=== PATIENT | male | born 1975 | race Caucasian/White ===

== ENCOUNTER 2018-08-17 20:56 | Inpatient (IN) | payer OTHER ==
--- NOTE | 2018-08-18 01:27 | HP ---
COWS - Scale Resting Pulse: 1= [place] 81-100 Sweatin=Flushed/Facial Moisture Restless Observation: 0= Sits Still Pupil Size: 5= Only [place] of [place] Seen (Pupils = 8 mm) Bone or Joint Aches: 0= None Runny Nose/ Eye Tearin= Nasal Congestion GI Upset > 30mins: 0= None Tremor Observation: 2= Slight Tremor Visible Yawning Observation: 1= 1-2x During Session Anxiety or Irritability: 1=Feels Anxious/Irritable Goose Flesh Skin: 0=Smooth Skin COWS Score: 13 CIWA Score - Admission Criteria OASAS Guidelines: Admission for Medically Managed Detox: Requires at least one of the followin. CIWA greater than 12 2. Seizures within the past 24 hours 3. Delirium tremens within the past 24 hours 4. Hallucinations within the past 24 hours 5. Acute intervention needed for co occurring medical disorder 6. Acute intervention needed for co occurring psychiatric disorder 7. Severe withdrawal that cannot be handled at a lower level of care (continued vomiting, continued diarrhea, abnormal vital signs) requiring intravenous medication and/or fluids 8. Admission ROS [facility] Chief Complaint: Heroin withdrawal. Allergies/Adverse Reactions: Allergies Allergy/AdvReac Type Severity Reaction Status Date / Time No Known Allergies Allergy Verified 08/18/18 01:55 History of Present Illness: Here for heroin detox. Heroin use began at age 35. Current use is 5-6 bag daily for 7 years. - IVDU. Denies sharing needles or works. Prescribed Xanax and Klonopin x 10 years - prescribed for PTSD and anxiety. States never takes more than prescrubed. Denies alcohol use. Nicotine use began at age 14. 1/2 PPD Cocaine use began at age 18. States no known use since 2006. Denies hx seizures, blackouts or overdoses. No Narcan kit at home. Willing to accept kit for home. PMHx: Denies significant PMH. MHHx. ADHD, PTSD and Depression. On medications. Denies thoughts of harming self or others. Longest length sobriety 1 year at age 38. Patient Name: Asif Bray Date: 1975 Address: [address] [place] [address] [place] [address] Sex: Male Rx Written Rx Dispensed Drug Quantity Days Supply Prescriber Name 08/12/2018 08/13/2018 dextroamp-amphetamin 20 mg tab 90 30 [place]dale, Sue Pride MD 08/12/2018 08/12/2018 alprazolam 2 mg tablet 30 30 [place]dale, Sue Pride MD 08/09/2018 08/10/2018 clonazepam 0.5 mg tablet 90 30 Gerdis, Francesco Chavarria MD 07/13/2018 07/13/2018 clonazepam 0.5 mg tablet 90 30 Gerdis, Francesco Chavarria MD 06/28/2018 06/29/2018 alprazolam 1 mg tablet 60 30 Gerdis, Francesco Chavarria MD 06/02/2018 06/02/2018 alprazolam 1 mg tablet 60 30 Gerdis, Francesco Chavarria MD 05/04/2018 05/04/2018 alprazolam 1 mg tablet 60 30 Gerdis, Francesco Chavarria MD 04/06/2018 04/06/2018 alprazolam 1 mg tablet 60 30 Gerdis, Francesco Chavarria MD 03/09/2018 03/09/2018 alprazolam 1 mg tablet 60 30 Gerdis, Francesco Chavarria MD 02/09/2018 02/09/2018 alprazolam 0.5 mg tablet 90 30 Gerdis, Francesco Chavarria MD 01/26/2018 01/26/2018 alprazolam 1 mg tablet 30 30 Gerdis, Francesco Chavarria MD 11/24/2017 11/24/2017 alprazolam 1 mg tablet 30 30 Ormazabal, Olatz Exam Limitations: No Limitations - Ebola screening Have you traveled outside of the country in the last 21 days: No Have you had contact with anyone from an Ebola affected area: No Do you have a fever: No - Review of Systems Constitutional: Chills, Diaphoresis, Changes in sleep (Difficulty falling asleep - takes vistaril) EENT: reports: Blurred Vision, Nose Congestion Respiratory: reports: No Symptoms reported Cardiac: reports: No Symptoms Reported GI: reports: No Symptoms Reported : reports: No Symptoms Reported Musculoskeletal: reports: No Symptoms Reported Integumentary: reports: No Symptoms Reported Neuro: reports: No Symptoms reported Endocrine: reports: No Symptoms Reported Hematology: reports: No Symptoms Reported Psychiatric: reports: Judgement Intact, Orientated x3 (Denies thoughts of harming self or others), Anxious, Depressed Patient History - PPD History Previous Implant?: Yes Documented Results: Negative w/o proof Implanted On Prior [facility] Admission?: No PPD to be Administered?: Yes - Smoking Cessation Smoking history: Current every day smoker Have you smoked in the past 12 months: Yes Aproximately how many cigarettes per day: 10 Hx Chewing Tobacco Use: No Initiated information on smoking cessation: Yes 'Breaking Loose' booklet given: 08/18/18 - Substance & Tx. History Hx Alcohol Use: No Hx Substance Use: Yes Substance Use Type: Heroin, Prescribed Hx Substance Use Treatment: Yes (rehab, ) - Substances abused Heroin Substance route: Injection Frequency: Daily Date of last use: 08/17/18 Admission Physical Exam [facility] - Vital Signs Vital Signs: Vital Signs - 24 hr 08/18/18 00:17 Pulse Rate 79 Respiratory 18 Rate Blood Pressure 110/65 - Physical General Appearance: Yes: Nourished, Mild Distress, Tremorous (Mild tremors) HEENTM: Yes: EOMI (Jerking movements of eyes upon lateral gaze), Hearing grossly Normal, Normocephalic, Normal Voice, CEZAR (Pupils = 8 mm), Pharynx Normal, Nasal Congestion, Other (Thick, sticky saliva) Respiratory: Yes: Lungs Clear, Normal Breath Sounds, No Respiratory Distress Neck: Yes: No masses,lesions,Nodules, Supple Breast: Yes: Breast Exam Deferred Cardiology: Yes: Regular Rhythm, Regular Rate, S1, S2 Abdominal: Yes: Non Tender, Soft, Increased Bowel Sounds Genitourinary: Yes: Within Normal Limits Back: Yes: Normal Inspection Musculoskeletal: Yes: full range of Motion, Gait Steady Extremities: Yes: Normal Capillary Refill, Tremors (slight tremors) 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 No increased erythema or warmth.) Lymphatic: Yes: Within Normal Limits - Diagnostic (1) Opioid dependence with withdrawal Current Visit: Yes Status: Acute Comment: IVDU (2) Nicotine dependence, uncomplicated Current Visit: Yes Status: Chronic Qualifiers: Nicotine product type: cigarettes Qualified Code(s): F17.210 - Nicotine dependence, cigarettes, uncomplicated (3) At risk for dehydration Current Visit: Yes Status: Acute (4) Prolonged Q-T interval on ECG Current Visit: Yes Status: Acute (5) Nystagmus Current Visit: Yes Status: Acute Cleared for Admission [facility] - Detox or Rehab [facility] Level of Care: Medically Managed Detox Regimen/Protocol: Methadone Breathalyzer - Breathalyzer Breathalyzer: 0 Urine Drug Screen - Test Device Lot number: [id number] Expiration date: 04/16/20 - Control Is test valid?: Yes - Results Drug screen NEGATIVE: No Urine drug screen results: ANA-Cocaine, AMP-Amphetamines, FEN-Fentanyl, MOP- Opiates, BZO-Benzodiazepines Inpatient Rehab Admission - Rehab Decision to Admit Inpatient rehab admission?: No
[2018-08-18] MEDS ORDERED: MAG HYDROX/AL HYDROX/SIMETH 30 ML UNIT-DOSE CUP PO PRN (02:02)
[2018-08-18] MEDS ORDERED: IBUPROFEN 400 MG TABLET (FP) PO PRN (02:02)
[2018-08-18] MEDS ORDERED: BISMUTH SUBSALICYLATE 524 MG/30 ML UD PO PRN (02:02)
[2018-08-18] MEDS ORDERED: MENTHOL/PHENOL 1 EACH UD MM PRN (02:02)
[2018-08-18] MEDS ORDERED: PROCHLORPERAZINE MALEATE 5 MG TABLET PO PRN (02:02)
[2018-08-18] MEDS ORDERED: NALOXONE HCL 0.4 MG/ML VIAL IVPUSH PRN (02:02)
[2018-08-18] MEDS ORDERED: guaiFENesin 200 MG/10 ML 10 ML UNIT-DOSE CUPS PO PRN (02:02)
[2018-08-18] MEDS ORDERED: MAGNESIUM HYDROX 2400MG/30ML ORAL SUSPENSION 30 ML CUP PO PRN (02:02)
[2018-08-18] MEDS ORDERED: ACETAMINOPHEN 325 MG TABLET (FP) PO PRN ×2 (02:02)
[2018-08-18] MEDS ORDERED: METHOCARBAMOL 500 MG TABLET PO PRN (02:02)
[2018-08-18] MEDS ORDERED: clonazePAM 0.5 MG TABLET PO PRN (02:02)
[2018-08-18] MEDS ORDERED: MAGNESIUM CITRATE 300 ML BOTTLE PO PRN (02:02)
[2018-08-18] MEDS ORDERED: METHADONE HCL 10 MG TABLET (FOR DETOX USE ONLY) PO ONE ×2 (02:15→10:00)
--- NOTE | 2018-08-18 10:08 | EKG ---
Test Reason : Blood Pressure : / mmHG Vent. Rate : 078 BPM Atrial Rate : 078 BPM P-R Int : 178 ms QRS Dur : 100 ms QT Int : 432 ms P-R-T Axes : 061 092 077 degrees QTc Int : 492 ms NORMAL SINUS RHYTHM RIGHTWARD AXIS PROLONGED QT ABNORMAL ECG NO PREVIOUS ECGS AVAILABLE Confirmed by REBECA GOODMAN MD ([id number]) on 08/18/2018 10:08:19 AM Referred By: Confirmed By:REBECA GOODMAN MD
[2018-08-18] MEDS: PRENATAL VITAMINS W/ FOLIC ACID TABLET (FP) PO SCH (10:40)
[2018-08-18] MEDS: cloNIDine HCL 0.1 MG TABLET PO PRN ×2 (10:43→18:36)
[2018-08-18] MEDS: NICOTINE 14 MG/24 HOURS TOPICAL PATCH TD SCH (10:50)
--- NOTE | 2018-08-18 11:24 | CONSULT ---
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 Refer to addiction counselor's summary for further information Medical History: Unremarkable Psychiatric History: Reports being diagnosed with ADHD and PTSD at age 33 at a clinic in [place] and started on xanax and Adderall. Reports seeing Dr Sue Patterson, a private psychiatrist and he is prescribed Lexapro 10 mg po daily, Adderall 20 mg po TID and Xanax 2 mg po daily. Claims he only takes adderall 10 mg po TID. He is also prescribed Klonopin 0.[address] Dr Francesco Benavides, his primary care physician. Told insurance underwriter sales his psychiatrist is aware that he is getting Klonopin from his PCP. Denies previous psychiatric hospitalization or suicidal attempt. At present, reports feeling depressed and sleeping poorly Physical/Sexual Abuse/Trauma History: Denies history of emotional, physical or sexual abuse as well as DV relationship. No service Additional Comment: Reports history of a few arrests including 2 felony convictions. Reports being on probation till October 2019 Mental Status Exam - Mental Status Exam Alert and Oriented to: Time, Place, Person Cognitive Function: Fair Patient Appearance: Well Groomed Mood: Depressed Affect: Appropriate Patient Behavior: Cooperative Speech Pattern: Clear Voice Loudness: Normal Thought Process: Intact, Goal Oriented Thought Disorder: Not Present Hallucinations: Denies Suicidal Ideation: Denies Homicidal Ideation: Denies Insight/Judgement: Poor Sleep: Poorly Appetite: Fair Muscle strength/Tone: Normal Gait/Station: Normal Psychiatric Findings - Problem List ([place] 1, 2,3) (1) ADHD (attention deficit hyperactivity disorder) Current Visit: Yes Status: Chronic (2) PTSD (post-traumatic stress disorder) Current Visit: Yes Status: Chronic (3) Substance induced mood disorder Current Visit: Yes Status: Acute (4) Substance-induced sleep disorder Current Visit: Yes Status: Acute (5) Opioid dependence with withdrawal Current Visit: Yes Status: Acute Comment: IVDU (6) Nicotine dependence, uncomplicated Current Visit: Yes Status: Chronic Qualifiers: Nicotine product type: cigarettes Qualified Code(s): F17.210 - Nicotine dependence, cigarettes, uncomplicated - Initial Treatment Plan Initial Treatment Plan: 1) Continue Lexapro 10 mg po daily. 2) Start Melatonin 5 mg po HS prn for insomnia. 3) Continue inpatient detoxfication
--- NOTE | 2018-08-18 11:38 | PN ---
[facility] COWS - Scale Resting Pulse: 1= MO 81-100 Sweatin=Flushed/Facial Moisture Restless Observation: 1= Difficult to Sit Still Pupil Size: 0= Normal to Room Light Bone or Joint Aches: 2= Severe Diffuse Aches Runny Nose/ Eye Tearin= Runny Nose/Eyes GI Upset > 30mins: 0= None Tremor Observation of Outstretched Hands: 1= Tremor [place], Not Seen Yawning Observation: 1= 1-2x During Session Anxiety or Irritability: 1=Feels Anxious/Irritable Goose Flesh Skin: 0=Smooth Skin COWS Score: 11 [facility] Progress Note (SOAP) Subjective: agitation sweats shakes tired interrupted sleep Objective: 08/18/18 11:37 Vital Signs Temperature 98.3 F 08/18/18 09:15 Pulse Rate 81 08/18/18 09:15 Respiratory Rate 18 08/18/18 09:15 Blood Pressure 116/66 08/18/18 09:15 O2 Sat by Pulse Oximetry (%) labs pending aaox3 ambulating no acute distress Assessment: 08/18/18 11:38 withdrawal sx Plan: continue detox increase fluids labs pending
[2018-08-18 12:29] LABS: HEMATOCRIT 42.7 % (35.4-49); HEMOGLOBIN 14.1 GM/dL (11.7-16.9); MCH 28.9 pg (25.7-33.7); MCHC 32.9 g/dl (32.0-35.9); MEAN CELL VOLUME 87.8 fl (80-96); MEAN PLT VOLUME 7.8 fl (7.5-11.1); PLATELET COUNT 266 K/MM3 (134-434); RBC 4.86 M/mm3 (4.00-5.60); RDW 14.1 % (11.9-15.9); WHITE BLOOD COUNT 7.2 K/mm3 (4.0-10.0)
[2018-08-18 13:05] LABS: ALBUMIN 3.5 g/dl (3.4-5.0); ALK PHOS 111 U/L (45-117); ANION GAP 8 MMOL/L (8-16); BILIRUBIN,TOTAL 0.2 mg/dL (0.2-1); BLOOD UREA NITROGEN 17 mg/dL (7-18); CALCIUM 8.3 mg/dL (8.5-10.1); CHLORIDE 108 mmol/L (98-107); CO2 24 mmol/L (21-32); GLUCOSE,RANDOM 102 mg/dL (74-106); POTASSIUM 4.9 mmol/L (3.5-5.1); SGOT/AST 19 U/L (15-37); SGPT/ALT 23 U/L (13-61); SODIUM 140 mmol/L (136-145); TOT PROT 6.3 g/dl (6.4-8.2)
[2018-08-18] MEDS: ESCITALOPRAM OXALATE 10 MG TABLET (FP) PO SCH (13:18)
[2018-08-18] MEDS: MELATONIN 5 MG TABLETS PO PRN (22:30)
[2018-08-18] MEDS: THIAMINE HCL 100 MG TABLET (FP) PO SCH (22:30)
--- NOTE | 2018-08-19 09:52 | PN ---
BHS COWS - Scale Resting Pulse: 0= [place] 80 or Below Sweatin= Chills/Flushing Restless Observation: 0= Sits Still Pupil Size: 0= Normal to Room Light Bone or Joint Aches: 2= Severe Diffuse Aches Runny Nose/ Eye Tearin= Nasal Congestion GI Upset > 30mins: 0= None Tremor Observation of Outstretched Hands: 1= Tremor [place], Not Seen Yawning Observation: 2= >3x During Session Anxiety or Irritability: 1=Feels Anxious/Irritable Goose Flesh Skin: 0=Smooth Skin COWS Score: 8 [facility] Progress Note (SOAP) Subjective: little sweats feeling better some body aches Objective: 08/19/18 09:51 Vital Signs Temperature 97.5 F L 08/19/18 07:47 Pulse Rate 56 L 08/19/18 07:47 Respiratory Rate 16 08/19/18 07:47 Blood Pressure 111/64 08/19/18 07:47 O2 Sat by Pulse Oximetry (%) Laboratory Tests 08/18/18 08/18/18 08/18/18 07:00 07:00 07:00 WBC 7.2 RBC 4.86 Hgb 14.1 Hct 42.7 MCV 87.8 MCH 28.9 MCHC 32.9 RDW 14.1 Plt Count 266 MPV 7.8 Sodium 140 Potassium 4.9 Chloride 108 H Carbon Dioxide 24 Anion Gap 8 BUN 17 Creatinine 1.0 Creat Clearance w eGFR 81.17 Random Glucose 102 Calcium 8.3 L Total Bilirubin 0.2 AST 19 ALT 23 Alkaline Phosphatase 111 Total Protein 6.3 L Albumin 3.5 RPR Titer Nonreactive aaox3 ambulating no acute distress Assessment: 08/19/18 09:52 mild withdrawal sx Plan: continue detox increase fluids
[2018-08-19] MEDS ORDERED: METHADONE HCL 5 MG TABLET (FOR DETOX USE ONLY) PO ONE (10:00)
[2018-08-19] MEDS: NICOTINE 14 MG/24 HOURS TOPICAL PATCH TD SCH (10:14)
[2018-08-19] MEDS: PRENATAL VITAMINS W/ FOLIC ACID TABLET (FP) PO SCH (10:14)
[2018-08-19] MEDS: ESCITALOPRAM OXALATE 10 MG TABLET (FP) PO SCH (10:15)
[2018-08-19] MEDS: THIAMINE HCL 100 MG TABLET (FP) PO SCH (22:40)
[2018-08-20] MEDS ORDERED: METHADONE HCL 10 MG TABLET (FOR DETOX USE ONLY) PO ONE (10:00)
[2018-08-20] MEDS: PRENATAL VITAMINS W/ FOLIC ACID TABLET (FP) PO SCH (10:06)
[2018-08-20] MEDS: ESCITALOPRAM OXALATE 10 MG TABLET (FP) PO SCH (10:07)
[2018-08-20] MEDS: NICOTINE 14 MG/24 HOURS TOPICAL PATCH TD SCH (10:08)
[2018-08-20] MEDS: clonazePAM 0.5 MG TABLET PO PRN ×2 (10:10→17:31)
--- NOTE | 2018-08-20 12:58 | PN ---
[facility] Progress Note (SOAP) Subjective: anxiety body aches Objective: 08/20/18 12:56 Vital Signs Temperature 97.8 F 08/20/18 09:37 Pulse Rate 61 08/20/18 09:37 Respiratory Rate 18 08/20/18 09:37 Blood Pressure 114/73 08/20/18 09:37 O2 Sat by Pulse Oximetry (%) aaox3 ambulating no acute distress Assessment: 08/20/18 12:57 mild withdrawal sx Plan: continue detox clonopin 0.5mg bid d/c in am
[2018-08-20] MEDS: NICOTINE POLACRILEX 2 MG GUM BUC PRN (17:31)
[2018-08-20] MEDS: THIAMINE HCL 100 MG TABLET (FP) PO SCH (22:26)
[2018-08-20] MEDS: MELATONIN 5 MG TABLETS PO PRN (22:27)
[2018-08-20] MEDS: cloNIDine HCL 0.1 MG TABLET PO PRN (22:28)
[2018-08-21] MEDS: clonazePAM 0.5 MG TABLET PO PRN (03:58)
[2018-08-21] MEDS ORDERED: METHADONE HCL 5 MG TABLET (FOR DETOX USE ONLY) PO ONE (06:00)
[2018-08-21] MEDS: PRENATAL VITAMINS W/ FOLIC ACID TABLET (FP) PO SCH (10:41)
[2018-08-21] MEDS: ESCITALOPRAM OXALATE 10 MG TABLET (FP) PO SCH (10:42)
[2018-08-21] MEDS: NICOTINE 14 MG/24 HOURS TOPICAL PATCH TD SCH (10:42)
[2018-08-21] MEDS ORDERED: clonazePAM 0.5 MG TABLET PO ONE (15:00)
--- NOTE | 2018-08-21 15:00 | PN ---
[facility] Progress Note (SOAP) Subjective: anxiety sweats "I don't feel good" requesting an extra day because "I dont want to use" Objective: 08/21/18 14:54 A & O x 3 anxious tremors Vital Signs Temperature 97.6 F 08/21/18 14:02 Pulse Rate 81 08/21/18 14:02 Respiratory Rate 18 08/21/18 14:02 Blood Pressure 138/90 08/21/18 14:02 O2 Sat by Pulse Oximetry (%) Pt is tremulous, tearful and anxious. Verbalizes that he feels he will "use" once he gets into the community as he does not feel ready Pt will be kept till tomorrow to allow for safe discharge. Per counselor, to assess for availability of rehab bed tomorrow or thursday. Assessment: 08/21/18 14:55 withdrawal sx Plan: evaluate for discharge tomorrow.
[2018-08-21] MEDS: NICOTINE POLACRILEX 2 MG GUM BUC PRN (19:15)
[2018-08-21] MEDS: MELATONIN 5 MG TABLETS PO PRN (21:42)
[2018-08-21] MEDS: THIAMINE HCL 100 MG TABLET (FP) PO SCH (21:42)
[2018-08-22 09:30] VITALS: BP 120/65; PULSE 60; TEMP 98.1
--- NOTE | 2018-08-22 12:10 | DS ---
[facility] Detox Discharge Summary Admission Date: 08/18/18 Discharge Date: 08/22/18 - History Present History: Opioid Dependence Additional Comments: Patient completed detox successfully and was discharged safely. Patient is A/A/ Ox3, in nad, vss, ambulatory. Patient instructed to follow up with PCP within 1- 2 weeks. Pertinent Past History: Opioid dependence Nicotine dependence - Physical Exam Results Vital Signs: Vital Signs Temperature 98.1 F 08/22/18 09:29 Pulse Rate 60 08/22/18 09:29 Respiratory Rate 16 08/22/18 09:29 Blood Pressure 120/65 08/22/18 09:29 O2 Sat by Pulse Oximetry (%) Pertinent Admission Physical Exam Findings: Withdrawal symptoms Laboratory Tests 08/18/18 08/18/18 08/18/18 07:00 07:00 07:00 WBC 7.2 RBC 4.86 Hgb 14.1 Hct 42.7 MCV 87.8 MCH 28.9 MCHC 32.9 RDW 14.1 Plt Count 266 MPV 7.8 Sodium 140 Potassium 4.9 Chloride 108 H Carbon Dioxide 24 Anion Gap 8 BUN 17 Creatinine 1.0 Creat Clearance w eGFR 81.17 Random Glucose 102 Calcium 8.3 L Total Bilirubin 0.2 AST 19 ALT 23 Alkaline Phosphatase 111 Total Protein 6.3 L Albumin 3.5 RPR Titer Nonreactive Labs reviewed - Treatment Hospital Course: Detox Protocol Followed, Detoxed Safely, Responded well, Discharged Condition Good - Medication Discharge Medications: Ambulatory Orders Alprazolam [Xanax] 1 tab PO DAILY PRN 08/18/18 Clonazepam 1 tab PO TID 08/18/18 - Diagnosis (1) Opioid dependence with withdrawal Current Visit: Yes Status: Acute (2) Nicotine dependence, uncomplicated Current Visit: Yes Status: Chronic Qualifiers: Nicotine product type: cigarettes Qualified Code(s): F17.210 - Nicotine dependence, cigarettes, uncomplicated - AMA Did Patient Leave Against Medical Advice: No (F/U with PCP within 1-2 weeks)
== END 2018-08-22 09:40 | disposition home or self-care (01) | DRG 897 ==
LOC: YASAS 20:56 → Y6N 08-18 01:25
PROVIDERS: ADMIT Surgery; ATTEND Surgery
PROC: HZ2ZZZZ Detoxification Services for Substance Abuse Treatment (ICD-10-PCS; principal; 2018-08-18)
DX: F11.23 Opioid dependence with withdrawal (principal); F19.282 Other psychoactive substance dependence with psychoactive substance-induced sleep disorder; F17.213 Nicotine dependence, cigarettes, with withdrawal; F19.24 Other psychoactive substance dependence with psychoactive substance-induced mood disorder; F43.10 Post-traumatic stress disorder, unspecified; F90.9 Attention-deficit hyperactivity disorder, unspecified type; H55.00 Unspecified nystagmus; Z91.89 Other specified personal risk factors, not elsewhere classified
CPT/HCPCS: 36415; 80053; 85027; 86593; 93005; 93010; J0735